=== PATIENT | male | born 1950 | race Caucasian/White ===

== ENCOUNTER 2017-11-19 10:18 | Inpatient (IN) | payer BC, OTHER ==
[~2017-11-19] VITALS: Ht 182.9 cm; Wt 101.2 kg
[2017-11-19] MEDS ORDERED: METOCLOPRAMIDE HCL INJ 5 MG/ML 2 ML VIAL IV. STA (10:45)
[2017-11-19] MEDS ORDERED: SODIUM CHLORIDE 0.9% 1000ML 1,000 ML IV STA (10:45)
--- NOTE | 2017-11-19 10:47 | EMERGENCY ROOM VISIT NOTE ---
History Report prepared by [place]: Xavier Spence Under the Supervision of: Dr. Maxime Purcell M.D. First contact with patient: 10:25 Chief Complaint: RECTAL BLEEDING Stated Complaint: VERY LIGHT HEADED, BLOOD IN STOOL History of Present Illness The patient is a 67 year old white male with a past medical history of DM, HTN, and asthma who presents to the ED with a cc of intermittent rectal bleeding beginning this morning. Positive light headedness worsened with walking. Negative LOC, rectal pain, hematemesis, abdominal pain, abdominal surgery, cough , fever, chills, recent camping or hiking, recent trauma. He notes that the blood seems like a dark blood, and he has had 5-6 bowel movements today. He denies any alcohol or tobacco use, history of ulcers, and history of inflammatory bowel disease. He takes 81mg aspiring BID, and takes 2 ibuprofen most nights. He denies any allergies Source of History: patient Onset: this morning Position: other (rectum) Quality: other Timing: intermittent Associated Symptoms: No LOC, No fevers, No chills, No cough, No abdominal pain Note: Associated symptoms Review of Systems See HPI for pertinent positives and negatives. A total of ten systems were reviewed and were otherwise negative. Past Medical & Surgical Medical Problems: (1) Asthma (2) Diabetes (3) HTN (hypertension) Family History Cancer Diabetes mellitus Heart disease Hypertension Kidney disease Kidney stones Social History Marital Status: Housing Status: lives with family Current/Historical Medications Scheduled Ascorbic Acid (Vitamin C), 1 TAB PO DAILY Aspirin (Aspirin Ec), 162 MG PO DAILY Biotin (Biotin 5000), 1 TAB PO DAILY Calcium (Calcium), 1 TAB PO DAILY Cholecalciferol (Vitamin D3), 1 CAP PO DAILY Coenzyme Q10 (Ubidecarenone) (Co Q-10), 1 CAP PO DAILY Cyanocobalamin (Vitamin B-12), 1,000 MCG PO DAILY Flaxseed (Linseed) (Flaxseed Oil), 1 CAP PO DAILY Glyburide (Micronase), 5 MG PO QID Insulin Glargine (Lantus), 20 UNITS SC QAM Krill Oil (Krill Oil 500 mg), 1 TAB PO DAILY Losartan Potassium (Cozaar), 50 MG PO DAILY Metformin Hcl (Glucophage), 1,000 MG PO BID Ocuvite Preservision (Ocuvite Preservision), 1 TAB PO DAILY Potassium (Potassium), 1 TAB PO QPM Simvastatin (Zocor), 1 TAB PO HS Tamsulosin Hcl (Flomax), 0.4 MG PO DAILY Scheduled PRN Ibuprofen (Advil), 400 MG PO PM PRN for Pain Allergies Coded Allergies: Lisinopril (Unverified Allergy, Unknown, unk, 11/19/17) Physical Exam Vital Signs Date Time Temp Pulse Resp B/P (MAP) Pulse Ox O2 Delivery O2 Flow Rate FiO2 11/19/17 13:14 124 20 104/76 96 11/19/17 11:55 115 20 113/77 96 Room Air 11/19/17 11:14 112 11/19/17 11:11 112 14 102/67 94 Room Air 11/19/17 11:10 96 Room Air 11/19/17 10:22 36.3 136 20 123/72 99 Room Air Physical Exam GENERAL: Awake, alert, pale-appearing, NAD HENT: Normocephalic, atraumatic. EYES: Normal conjunctiva. Sclera non-icteric. NECK: Supple. No nuchal rigidity. FROM. RESPIRATORY: CTAB, no rhonchi, wheezing, crackles CARDIAC: RRR, no MRG ABDOMEN: Soft, NTND, BS+ RECTAL: No bleeding hemorrhoids noted. Dark blood. No melenic stool. Gross blood on exam. MSK: No chest wall TTP, no LE edema NEURO: GCS 15, CN 2-12 intact, moves all 4s on command SKIN: No rash or jaundice noted. Medical Decision & Procedures Laboratory Results 11/19/17 11:00 Red Blood Count 3.75, Mean Corpuscular Volume 89.9, Mean Corpuscular Hemoglobin 30.1, Mean Corpuscular Hemoglobin Concent 33.5, Mean Platelet Volume 10.3, Neutrophils (%) (Auto) 86.8, Lymphocytes (%) (Auto) 8.7, Monocytes (%) (Auto) 3.7, Eosinophils (%) (Auto) 0.2, Basophils (%) (Auto) 0.2, Neutrophils # (Auto) 8.17, Lymphocytes # (Auto) 0.82, Monocytes # (Auto) 0.35, Eosinophils # (Auto) 0.02, Basophils # (Auto) 0.02 11/19/17 11:00 Test 11/19/17 11:00 11/19/17 12:10 White Blood Count 9.42 K/uL (4.8-10.8) Red Blood Count 3.75 M/uL (4.7-6.1) Hemoglobin 11.3 g/dL (14.0-18.0) Hematocrit 33.7 % (42-52) Mean Corpuscular Volume 89.9 fL (80-100) Mean Corpuscular Hemoglobin 30.1 pg (25-34) Mean Corpuscular Hemoglobin Concent 33.5 g/dl (32-36) Platelet Count 248 K/uL (130-400) Mean Platelet Volume 10.3 fL (7.4-10.4) Neutrophils (%) (Auto) 86.8 % Lymphocytes (%) (Auto) 8.7 % Monocytes (%) (Auto) 3.7 % Eosinophils (%) (Auto) 0.2 % Basophils (%) (Auto) 0.2 % Neutrophils # (Auto) 8.17 K/uL (1.4-6.5) Lymphocytes # (Auto) 0.82 K/uL (1.2-3.4) Monocytes # (Auto) 0.35 K/uL (0.11-0.59) Eosinophils # (Auto) 0.02 K/uL (0-0.5) Basophils # (Auto) 0.02 K/uL (0-0.2) RDW Standard Deviation 41.9 fL (36.4-46.3) RDW Coefficient of Variation 12.8 % (11.5-14.5) Immature Granulocyte % (Auto) 0.4 % Immature Granulocyte # (Auto) 0.04 K/uL (0.00-0.02) Prothrombin Time 10.3 SECONDS (9.0-12.0) Prothromb Time International Ratio 1.0 (0.9-1.1) Activated Partial Thromboplast Time 20.5 SECONDS (21.0-31.0) Partial Thromboplastin Ratio 0.8 Anion Gap 10.0 mmol/L (3-11) Est Creatinine Clear Calc Drug Dose 68.8 ml/min Estimated GFR () 67.3 Estimated GFR (Non- 58.1 BUN/Creatinine Ratio 19.9 (10-20) Calcium Level 8.6 mg/dl (8.5-10.1) Total Bilirubin 0.4 mg/dl (0.2-1) Direct Bilirubin < 0.1 mg/dl (0-0.2) Aspartate Amino Transf (AST/SGOT) 13 U/L (15-37) Alanine Aminotransferase (ALT/SGPT) 23 U/L (12-78) Alkaline Phosphatase 52 U/L (45-117) Troponin I < 0.015 ng/ml (0-0.045) Total Protein 6.6 gm/dl (6.4-8.2) Albumin 3.3 gm/dl (3.4-5.0) Lipase 224 U/L (73-393) Beta-Hydroxybutyric Acid 5.93 mg/dL (0.2-2.81) Urine Color YELLOW Urine Appearance CLEAR (CLEAR) Urine pH 5.0 (4.5-7.5) Urine Specific [place] 1.029 (1.000-1.030) Urine Protein NEG (NEG) Urine Glucose (UA) 3+ (NEG) Urine Ketones 1+ (NEG) Urine Occult Blood NEG (NEG) Urine Nitrite NEG (NEG) Urine Bilirubin NEG (NEG) Urine Urobilinogen NEG (NEG) Urine Leukocyte Esterase NEG (NEG) Laboratory results reviewed by me. Medications Administered Medications (Trade) Dose Ordered Sig/Fracisco Route Start Time Stop Time Status Last Admin Dose Admin Sodium Chloride 1,000 ml @ 999 mls/hr Q1H1M STAT IV 11/19/17 10:45 11/19/17 11:45 DC 11/19/17 11:07 999 MLS/HR Metoclopramide HCl (Reglan Inj) 10 mg NOW STAT IV. 11/19/17 10:45 11/19/17 10:46 DC 11/19/17 11:07 10 MG Pantoprazole Sodium 80 mg/ Dextrose 120 ml @ 480 mls/hr TODAY@1215 ONCE IV 11/19/17 12:15 11/19/17 12:29 DC 11/19/17 12:42 480 MLS/HR Pantoprazole Sodium 40 mg/ Dextrose 100 ml @ 20 mls/hr Q5H IV 11/19/17 12:30 11/19/17 17:29 11/19/17 13:08 20 MLS/HR ECG Indication: other (light headed) Rate (beats per minute): 116 Rhythm: sinus tachycardia Findings: T-wave inversion (lead 3), other (Normal aixs, normal intervals, no other STS changes or TWI) Change: Patient's electrocardiogram interpreted by me. ED Course 1025: The patient was evaluated in room C3. A complete history and physical exam was performed. 1110: The patient was refusing a chest x-ray. 1153: I reevaluated the patient, and he wanted to leave. I discussed the risks, and I told him if he were to leave it would be AMA. 1244: I reassessed the patient, and he was not willing to be admitted even though he meets medical criteria, and I would like him to be admitted. 1303: I reevaluated the patient again, and he is willing to be evaluated by a hospitalist. 1314: Discussed the patient's case with Dr. Demar Agarwal Hospitalist. The patient will be evaluated for further treatment and disposition. Medical Decision The patient is a 67 year old white male with a past medical history of DM, HTN, and asthma who presents to the ED with a cc of intermittent rectal bleeding beginning this morning. Differential diagnosis: Etiologies such as diverticulosis, AVM, coagulopathy, colitis, inflammatory bowel disease, malignancy, Mable-Isaac tear, esophagitis, peptic ulcer disease , variceal bleed, gastritis, epistaxis, fissure, hemorrhoids, as well as others were entertained. Patient was seen and evaluated the bedside. Patient noted that he had 5-6 bowel movements today believe are dark in nature. Patient denies any prior history of cirrhosis, liver dysfunction, or alcohol use. Patient of note is take 2 baby aspirin daily along with 400 Motrin in the evening for some chronic shoulder pain. Patient doesn't appear pale in appearance and is tachycardic. Patient's blood work completed that showed a hemoglobin of 11. I did discuss with the patient that I believe that he would benefit from admission for further evaluation and treatment. Patient's other blood work is fairly unremarkable. No prior blood work to compare to. Regulation studies normal. Platelet count normal. I did have discussion stated the patient would benefit from further treatment. Patient was ordered a PPI bolus and drip. The patient was still debating whether not he should stay. We had multiple conversations and stated that he should stay in the hospital. 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 [facility] did speak with the patient's primary care physician. She also agreed that the patient's stay in the hospital further workup. Patient was deemed agreeable to stay in the hospital. Patient was admitted to the medicine service. Medication Reconcilliation Current Medication List: was personally reviewed by me Blood Pressure Screening Patient's blood pressure: Normal blood pressure Consults Time Called: 1306 Consulting Physician: Dr. Demar Agarwal Hospitalist Returned Call: 1314 Discussed the patient's case with Dr. Demar Agarwal Hospitalist. The patient will be evaluated for further treatment and disposition. Impression Primary Impression: GI bleed Additional Impression: Anemia Scribe Attestation The scribe's documentation has been prepared under my direction and personally reviewed by me in its entirety. I confirm that the note above accurately reflects all work, treatment, procedures, and medical decision making performed by me. Departure Information Dispostion Being Evaluated By Hospitalist Referrals No Doctor, Assigned (PCP) Patient Instructions My [facility] Problem Qualifiers Primary Impression: GI bleed GI bleed type/associated pathology: unspecified gastrointestinal hemorrhage type Qualified Codes: K92.2 - Gastrointestinal hemorrhage, unspecified Additional Impression: Anemia Anemia type: unspecified type Qualified Codes: D64.9 - Anemia, unspecified
[2017-11-19 11:12] LABS: BASO % 0.2 %; BASO ABS # 0.02 K/uL (0-0.2); EOS % 0.2 %; EOS ABS # 0.02 K/uL (0-0.5); HEMATOCRIT 33.7 % (42-52); HEMOGLOBIN 11.3 g/dL (14.0-18.0); IG# 0.04 K/uL (0.00-0.02); LYMPH % 8.7 %; LYMPH ABS # 0.82 K/uL (1.2-3.4); MEAN CELL VOLUME 89.9 fL (80-100); MEAN CORPUSCULAR HEMOGLOBIN 30.1 pg (25-34); MEAN CORPUSCULAR HGB CONC 33.5 g/dl (32-36); MEAN PLATELET VOLUME 10.3 fL (7.4-10.4); MONO % 3.7 %; MONO ABS # 0.35 K/uL (0.11-0.59); NEUT % 86.8 %; NEUT ABS # 8.17 K/uL (1.4-6.5); PLATELET COUNT 248 K/uL (130-400); RED CELL DISTRIBUTION WIDTH CV 12.8 % (11.5-14.5); RED CELL DISTRIBUTION WIDTH SD 41.9 fL (36.4-46.3); WHITE BLOOD COUNT 9.42 K/uL (4.8-10.8)
[2017-11-19 11:19] LABS: PTT PATIENT 20.5 SECONDS (21.0-31.0)
[2017-11-19] MEDS ORDERED: SIMV20TA5 PO ×2 (11:23→14:54)
[2017-11-19] MEDS ORDERED: INSDGI SC (11:23)
[2017-11-19] MEDS ORDERED: ASPI81TA28 PO (11:23)
[2017-11-19] MEDS ORDERED: BIOT10TA2 PO (11:23)
[2017-11-19] MEDS ORDERED: POTA99TA PO ×2 (11:23→14:54)
[2017-11-19] MEDS ORDERED: CALC500T25 PO (11:23)
[2017-11-19] MEDS ORDERED: IBUP-1050 PO (11:23)
[2017-11-19] MEDS ORDERED: CHOL2000 PO (11:23)
[2017-11-19] MEDS ORDERED: KRIL1CAP7 PO (11:23)
[2017-11-19] MEDS ORDERED: GLC/500 PO (11:23)
[2017-11-19] MEDS ORDERED: TAMS0.4C38 PO (11:23)
[2017-11-19] MEDS ORDERED: GLYB5TAB8 PO ×2 (11:23→14:54)
[2017-11-19] MEDS ORDERED: MULT-190 PO (11:23)
[2017-11-19] MEDS ORDERED: CYAN10005 PO (11:23)
[2017-11-19 11:28] LABS: ALBUMIN 3.3 gm/dl (3.4-5.0); ALT/SGPT 23 U/L (12-78); AST/SGOT 13 U/L (15-37); BLOOD UREA NITROGEN 25 mg/dl (7-18); CALCIUM 8.6 mg/dl (8.5-10.1); CARBON DIOXIDE 25 mmol/L (21-32); CREATININE 1.27 mg/dl (0.60-1.40); GLUCOSE 308 mg/dl (70-99); LIPASE 224 U/L (73-393); SODIUM 137 mmol/L (136-145)
[2017-11-19 11:31] LABS: TOTAL PROTEIN 6.6 gm/dl (6.4-8.2)
[2017-11-19 11:38] LABS: ALKALINE PHOSPHATASE 52 U/L (45-117)
[2017-11-19] MEDS ORDERED: PANTOprazole INJ 80 MG in DEXTROSE 5% 100ML IV ONE (12:15)
[2017-11-19] MEDS: PANTOprazole INJ 40 MG in DEXTROSE 5% 100ML IV SCH ×3 (13:08→20:45)
[2017-11-19] MEDS ORDERED: GLUCOSE 40% GEL 15 GM TUBE PO PRN (14:30)
[2017-11-19] MEDS ORDERED: GLUCAGON FOR INJ 1 MG VIAL SQ PRN (14:30)
[2017-11-19] MEDS ORDERED: GLUCOSE 10 TABS/TUBE PO PRN (14:30)
[2017-11-19] MEDS ORDERED: DEXTROSE 50% 50 ML SYR IV PRN (14:30)
[2017-11-19] MEDS ORDERED: ONDANSETRON INJ 2 MG/ML 2 ML VIAL IV PRN (14:30)
[2017-11-19] MEDS ORDERED: PHARMACY GLYCEMIC MGMT CONSULT PRN (14:44)
[2017-11-19] MEDS ORDERED: METF1000 PO (14:54)
[2017-11-19] MEDS ORDERED: LOSA50TA6 PO (14:54)
[2017-11-19] MEDS ORDERED: BIOTCAP2 PO (14:54)
[2017-11-19] MEDS ORDERED: KRIL1CAP24 PO (14:54)
[2017-11-19] MEDS ORDERED: COEN300C PO (14:54)
[2017-11-19] MEDS ORDERED: ASCO10003 PO (14:54)
[2017-11-19] MEDS ORDERED: CALC600T37 PO (14:54)
[2017-11-19] MEDS ORDERED: FLAX PO (14:54)
--- NOTE | 2017-11-19 15:18 | Gastrointestinal Consultation ---
Gastrointestinal Consultation Date of Consultation: Nov 19, 2017 Attending Physician: Dr. Benz Consulting Physician: Dr. Van Reason for Consultation: Rectal bleeding History of Present Illness Patient is a 67 year old male patient who lives in the [place] area and is here for work. He presented to the ED today for rectal bleeding, present for "a few days," occurred about 8 times today, loose, consisting of a small amt of fecal material and mostly dark red blood. Today he became lightheaded, precipitating his presentation to the ED. On arrival, Hb is 11.3, but his baseline is unknown. Platelets = 248, INR is 1.0. BUN = 25, INR 1.27. BP is 104/76. He is tachycardic at 125/min. He denies any abdominal pain, nausea or vomiting. 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 He reports taking 2 baby aspirins/day and 400mg of ibuprofen every night. He tells me that his lightheadedness has resolved and that he wants to quickly "do what needs to be done," so he can, "get back to work." Past Medical/Surgical History Medical Problems: (1) Anemia Status: Acute (2) GI bleed Status: Acute Past Medical History: 1. DM-2 Past Surgical History: 1. Childhood tonsillectomy 2. Cataract surgery Family History Cancer Diabetes mellitus Heart disease Hypertension Kidney disease Kidney stones Social History Marital Status: Housing Status: lives with family Allergies Coded Allergies: Lisinopril (Unverified Allergy, Unknown, unk, 11/19/17) Current Medications Home Meds and Scripts Medications Dose Route/Sig Max Daily Dose Days Date Category Zocor (Simvastatin) Unknown Strength Tab Unknown Dose PO QPM 11/19/17 Reported Micronase (Glyburide) Unknown Strength Tab Unknown Dose PO DAILY 11/19/17 Reported Glucophage (Metformin Hcl) Unknown Strength Tab Unknown Dose PO BID 11/19/17 Reported Flomax (Tamsulosin Hcl) 0.4 Mg Cap 0.4 Mg PO DAILY 11/19/17 Reported Vitamin D3 (Cholecalciferol) 2,000 Unit Cap 1 Cap PO DAILY 90 11/19/17 Reported Krill Oil [place]-3 (Krill Oil) 1 Cap Cap 1 Cap PO BID 11/19/17 Reported Ocuvite Preservision (Multivitamins/Minerals) 1 Tab Tab 1 Tab PO DAILY 11/19/17 Reported Potassium 99 Mg Tab 99 Mg PO DAILY 11/19/17 Reported Calcium (Calcium Carbonate) 1,250 Mg Tab 1,250 Mg PO DAILY 11/19/17 Reported Biotin 10 Mg Tab 10 Mg PO DAILY 11/19/17 Reported Vitamin B-12 (Cyanocobalamin) 1,000 Mcg Tab 1,000 Mcg PO DAILY 11/19/17 Reported Advil (Ibuprofen) 200 Mg Tab 400-600 Mg PO PM 11/19/17 Reported Aspirin Ec (Aspirin) 81 Mg Tab 162 Mg PO DAILY 11/19/17 Reported Lantus (Insulin Glargine) 100 Unit/Ml Inj 20 Units SC QAM 11/19/17 Reported Review of Systems Constitutional: No fever, No chills, No sweats, No weight loss, No weakness Eyes: No eye pain, No redness ENT: No sore throat, No trouble swallowing, No pain on swallowing Respiratory: No cough, No wheezing, No shortness of breath, No dyspnea on exertion Cardiac: No chest pain, No edema, No palpitations Abdomen: + see HPI, No pain, No nausea, No vomiting Neuro: No memory loss, No weakness, No numbness/tingling, No vertigo, No balance problems Psych: No depression symptoms, No anxiety, No insomnia Heme: No abnormal bleeding/bruising, No night sweats Endo: No excessive thirst, No excessive urination Skin: No rash, No itch, No new/changing skin lesions, No jaundice Physical Exam Date Time Temp Pulse Resp B/P (MAP) Pulse Ox O2 Delivery O2 Flow Rate FiO2 11/19/17 13:14 124 20 104/76 96 11/19/17 11:55 115 20 113/77 96 Room Air 11/19/17 11:14 112 11/19/17 11:11 112 14 102/67 94 Room Air 11/19/17 11:10 96 Room Air 11/19/17 10:22 36.3 136 20 123/72 99 Room Air General Appearance: no apparent distress Eyes: normal inspection, EOMI Neck: supple, no adenopathy, thyroid normal Respiratory/Chest: chest non-tender, lungs clear, normal breath sounds, no accessory muscle use Cardiovascular: regular rate, rhythm, no JVD, no murmur Abdomen: normal bowel sounds, non tender, soft, no organomegaly Extremities: normal inspection, no pedal edema, normal capillary refill Neurologic/Psych: alert, normal mood/affect, oriented x 3 Skin: normal color, no jaundice, warm/dry, no rash Laboratory Results Last 24 Hours Test 11/19/17 11:00 11/19/17 12:10 11/19/17 14:28 White Blood Count 9.42 K/uL Red Blood Count 3.75 M/uL Hemoglobin 11.3 g/dL Hematocrit 33.7 % Mean Corpuscular Volume 89.9 fL Mean Corpuscular Hemoglobin 30.1 pg Mean Corpuscular Hemoglobin Concent 33.5 g/dl Platelet Count 248 K/uL Mean Platelet Volume 10.3 fL Neutrophils (%) (Auto) 86.8 % Lymphocytes (%) (Auto) 8.7 % Monocytes (%) (Auto) 3.7 % Eosinophils (%) (Auto) 0.2 % Basophils (%) (Auto) 0.2 % Neutrophils # (Auto) 8.17 K/uL Lymphocytes # (Auto) 0.82 K/uL Monocytes # (Auto) 0.35 K/uL Eosinophils # (Auto) 0.02 K/uL Basophils # (Auto) 0.02 K/uL RDW Standard Deviation 41.9 fL RDW Coefficient of Variation 12.8 % Immature Granulocyte % (Auto) 0.4 % Immature Granulocyte # (Auto) 0.04 K/uL Prothrombin Time 10.3 SECONDS Prothromb Time International Ratio 1.0 Activated Partial Thromboplast Time 20.5 SECONDS Partial Thromboplastin Ratio 0.8 Sodium Level 137 mmol/L Potassium Level 5.0 mmol/L Chloride Level 102 mmol/L Carbon Dioxide Level 25 mmol/L Anion Gap 10.0 mmol/L Blood Urea Nitrogen 25 mg/dl Creatinine 1.27 mg/dl Est Creatinine Clear Calc Drug Dose 68.8 ml/min Estimated GFR () 67.3 Estimated GFR (Non- 58.1 BUN/Creatinine Ratio 19.9 Random Glucose 308 mg/dl Calcium Level 8.6 mg/dl Total Bilirubin 0.4 mg/dl Direct Bilirubin < 0.1 mg/dl Aspartate Amino Transf (AST/SGOT) 13 U/L Alanine Aminotransferase (ALT/SGPT) 23 U/L Alkaline Phosphatase 52 U/L Troponin I < 0.015 ng/ml Total Protein 6.6 gm/dl Albumin 3.3 gm/dl Lipase 224 U/L Beta-Hydroxybutyric Acid 5.93 mg/dL Urine Color YELLOW Urine Appearance CLEAR Urine pH 5.0 Urine Specific [place] 1.029 Urine Protein NEG Urine Glucose (UA) 3+ Urine Ketones 1+ Urine Occult Blood NEG Urine Nitrite NEG Urine Bilirubin NEG Urine Urobilinogen NEG Urine Leukocyte Esterase NEG Impression Patient is a 67 year old male with painless rectal bleeding, likely diverticular , however, ischemic colitis, hemorrhoidal bleeding are also considered. In light of his NSAID use, he is at risk for an UGI bleed and mildly elevated BUN at 25 is also suggestive of that but his lack of heartburn/epigastric argues against that. Plan 1. IV fluids. 2. Agree with Protonix drip until UGI bleed is ruled out. 3. Hold NSAIDs. 4. Clear liquids tonight. 5. Plan for EGD/colonoscopy tomorrow. I have seen , examined and agree with the plan as outlined by MARGIE Soria as above. -exam reveals soft abd -No pain -No melena noted, appears well -Not NPO today -Prep tonight, plan for EGD/Colon in the am
--- NOTE | 2017-11-19 15:25 | History and Physical ---
History & Physical Date & Time of Service: Nov 19, 2017 at 15:15 Chief Complaint: Very Light Headed, Blood In Stool Primary Care Physician: No Doctor, Assigned History of Present Illness Source: patient, hospital records This is a 67yo M with a PMH of DM II, HTN, BPH and asthma who presents with rectal bleeding for the past few days. He lives in [place] but is traveling in the area for work. Noticed that his stool was darker than normal the past few days but only this morning did he notice blood in the toilet after a bowel movement. Endorses 7 episodes of dark brown stool with dark red blood today. Started to feel lightheaded with exertion so came to ED for further evaluation. Denies abdominal pain, nausea or vomiting. Denies any history of peptic ulcers, diverticular bleeds. Does not smoke. Takes 2 baby aspirin every morning and 400mg of ibuprofen most nights for shoulder pain. Patient took his AM meds, including 20u of Lantus. Endorses infrequent "twinges" of pain on his left chest. Denies any chest pressure, radiation of pain, diaphoresis. No fever, chills, headache, pre- syncope, visual changes, sore throat, palpitations, SOB, dysuria, weakness of extremities or LE swelling. Past Medical/Surgical History Medical Problems: (1) Asthma Status: Chronic (2) BPH (benign prostatic hyperplasia) Status: Chronic (3) Diabetes mellitus, type II Status: Chronic (4) HTN (hypertension) Status: Chronic Family History Cancer Diabetes mellitus Heart disease Hypertension Kidney disease Kidney stones Social History Smoking Status: Unknown if Ever Smoked Alcohol Use: none Marital Status: Housing status: lives with family Occupational Status: employed Allergies Coded Allergies: Lisinopril (Unverified Allergy, Unknown, unk, 11/19/17) Home Medications Scheduled Ascorbic Acid (Vitamin C), 1 TAB PO DAILY Aspirin (Aspirin Ec), 162 MG PO DAILY Biotin (Biotin 5000), 1 TAB PO DAILY Calcium (Calcium), 1 TAB PO DAILY Cholecalciferol (Vitamin D3), 1 CAP PO DAILY Coenzyme Q10 (Ubidecarenone) (Co Q-10), 1 CAP PO DAILY Cyanocobalamin (Vitamin B-12), 1,000 MCG PO DAILY Flaxseed (Linseed) (Flaxseed Oil), 1 CAP PO DAILY Glyburide (Micronase), 5 MG PO QID Insulin Glargine (Lantus), 20 UNITS SC QAM Krill Oil (Krill Oil 500 mg), 1 TAB PO DAILY Losartan Potassium (Cozaar), 50 MG PO DAILY Metformin Hcl (Glucophage), 1,000 MG PO BID Ocuvite Preservision (Ocuvite Preservision), 1 TAB PO DAILY Potassium (Potassium), 1 TAB PO QPM Simvastatin (Zocor), 1 TAB PO HS Tamsulosin Hcl (Flomax), 0.4 MG PO DAILY Scheduled PRN Ibuprofen (Advil), 400 MG PO PM PRN for Pain Review of Systems Ten systems reviewed and negative except as noted in the HPI. Physical Exam Vital Signs Date Time Temp Pulse Resp B/P (MAP) Pulse Ox O2 Delivery O2 Flow Rate FiO2 11/19/17 13:14 124 20 104/76 96 11/19/17 11:55 115 20 113/77 96 Room Air 11/19/17 11:14 112 11/19/17 11:11 112 14 102/67 94 Room Air 11/19/17 11:10 96 Room Air 11/19/17 10:22 36.3 136 20 123/72 99 Room Air General Appearance: WD/WN, no apparent distress, + pertinent finding (pale ) Head: normocephalic, atraumatic Eyes: normal inspection, PERRL, sclerae normal ENT: normal ENT inspection, hearing grossly normal, pharynx normal Neck: supple, thyroid normal, trachea midline Respiratory/Chest: chest non-tender, lungs clear, normal breath sounds, no respiratory distress, no accessory muscle use Cardiovascular: no murmur, normal peripheral pulses, + tachycardia Abdomen/GI: normal bowel sounds, non tender, soft, no organomegaly Back: normal inspection Extremities/Musculoskelatal: normal inspection, no calf tenderness, no pedal edema Neurologic/Psych: no motor/sensory deficits, alert, normal mood/affect, oriented x 3 Skin: normal color, warm/dry, + pallor Diagnostics Laboratory Results Results Past 24 Hours Test 11/19/17 11:00 11/19/17 12:10 11/19/17 15:09 Range/Units White Blood Count 9.42 4.8-10.8 K/uL Red Blood Count 3.75 4.7-6.1 M/uL Hemoglobin 11.3 14.0-18.0 g/dL Hematocrit 33.7 42-52 % Mean Corpuscular Volume 89.9 80-100 fL Mean Corpuscular Hemoglobin 30.1 25-34 pg Mean Corpuscular Hemoglobin Concent 33.5 32-36 g/dl Platelet Count 248 130-400 K/uL Mean Platelet Volume 10.3 7.4-10.4 fL Neutrophils (%) (Auto) 86.8 % Lymphocytes (%) (Auto) 8.7 % Monocytes (%) (Auto) 3.7 % Eosinophils (%) (Auto) 0.2 % Basophils (%) (Auto) 0.2 % Neutrophils # (Auto) 8.17 1.4-6.5 K/uL Lymphocytes # (Auto) 0.82 1.2-3.4 K/uL Monocytes # (Auto) 0.35 0.11-0.59 K/uL Eosinophils # (Auto) 0.02 0-0.5 K/uL Basophils # (Auto) 0.02 0-0.2 K/uL RDW Standard Deviation 41.9 36.4-46.3 fL RDW Coefficient of Variation 12.8 11.5-14.5 % Immature Granulocyte % (Auto) 0.4 % Immature Granulocyte # (Auto) 0.04 0.00-0.02 K/uL Prothrombin Time 10.3 9.0-12.0 SECONDS Prothromb Time International Ratio 1.0 0.9-1.1 Activated Partial Thromboplast Time 20.5 21.0-31.0 SECONDS Partial Thromboplastin Ratio 0.8 Sodium Level 137 136-145 mmol/L Potassium Level 5.0 3.5-5.1 mmol/L Chloride Level 102 98-107 mmol/L Carbon Dioxide Level 25 21-32 mmol/L Anion Gap 10.0 3-11 mmol/L Blood Urea Nitrogen 25 7-18 mg/dl Creatinine 1.27 0.60-1.40 mg/dl Est Creatinine Clear Calc Drug Dose 68.8 ml/min Estimated GFR () 67.3 Estimated GFR (Non- 58.1 BUN/Creatinine Ratio 19.9 10-20 Random Glucose 308 70-99 mg/dl Calcium Level 8.6 8.5-10.1 mg/dl Total Bilirubin 0.4 0.2-1 mg/dl Direct Bilirubin < 0.1 0-0.2 mg/dl Aspartate Amino Transf (AST/SGOT) 13 15-37 U/L Alanine Aminotransferase (ALT/SGPT) 23 12-78 U/L Alkaline Phosphatase 52 45-117 U/L Troponin I < 0.015 0-0.045 ng/ml Total Protein 6.6 6.4-8.2 gm/dl Albumin 3.3 3.4-5.0 gm/dl Lipase 224 73-393 U/L Beta-Hydroxybutyric Acid 5.93 0.2-2.81 mg/dL Urine Color YELLOW Urine Appearance CLEAR CLEAR Urine pH 5.0 4.5-7.5 Urine Specific [place] 1.029 1.000-1.030 Urine Protein NEG NEG Urine Glucose (UA) 3+ NEG Urine Ketones 1+ NEG Urine Occult Blood NEG NEG Urine Nitrite NEG NEG Urine Bilirubin NEG NEG Urine Urobilinogen NEG NEG Urine Leukocyte Esterase NEG NEG EKG Sinus tachycardia at 116 bpm. Impression Assessment and Plan This is a 67yo M with a PMH of DM II, HTN, BPH and asthma who presents with rectal bleeding for the past few days. He lives in [place] but is traveling in the area for work. Anemia 2/2 GI bleed: -Lightheaded, tachycardic -Hgb of 11.3. Unknown baseline -H&H Q6 -Type & screened -Transfuse if hgb <8 -IV fluids GI bleed: -Dark stool with presence of dark blood -Mildly elevated BUN of 25 -At risk for upper GI bleed with NSAID use, but no abd pain -Also considering diverticular bleed, hemorrhoids -IV fluids -Protonix bolus and drip -Hold NSAIDs -GI consulted -Clear liquids, NPO after midnight -Plan for EGD/colonoscopy tomorrow DM II: -BG of 308 on arrival -Beta hydroxybutyric acid elevated to 5.9. No anion gap -Takes 20u Lantus qAM, metformin, glyburide -Hold home meds -Basal bolus insulin per protocol -Repeat Beta hydroxybutyric acid in AM -Pharm consult -A1c pending Atypical chest pain: -Intermittent "twinges" on left chest wall -Likely musculoskeletal in origin -EKG without ischemic changes, initial troponin negative -Trend troponins for completeness HTN: -Normotensive -Hold losartan for now -Monitor BPH: -Hold tamsulosin for now Asthma: -Stable DVT Ppx: SCDs Code status: FULL PCP: Dr. Suarez ([place]) Dispo: Admitted to telemetry. Plan to return home once medically stable. Patient seen in collaboration with Dr. Benz. Please see addendum. ATTENDING ADDENDUM ; pt seen and examined , care co ordinated with Yesenia Valentino PA-C 67 yo M presented with 2 days hx of bright red blood per rectum , multiple episodes yesterday and this AM associated with WHITE , fatigue , dizzy and lightheadedness HB 11 reports to taking Aspirin 162 mg daily and PRN ibuprofen hemodynamically stable ordered for NPO , IV Protonix gtt GI eval requested 2 units of PRBC typed and crossed follow H&H q 6hrs , PRBC tx if Hb < 8 or active bleeding noted Full code please refer to documentation of Yesenia Valentino PA-C for further discussion of other issues Rosalia Benz MD Level of Care Telemetry Resuscitation Status FULL RESUSCITATION VTE Prophylaxis VTE Risk Assessment Done? Y/N: Yes Risk Level: Moderate Given or contraindicated: SCD's
[2017-11-19 15:27] LABS: HEMATOCRIT 30.7 % (42-52); HEMOGLOBIN 10.4 g/dL (14.0-18.0)
[2017-11-19] MEDS ORDERED: INSULIN ASPART 100 UNITS/ML 3 ML PEN SC SCH ×2 (16:00→18:00)
[2017-11-19] MEDS ORDERED: BISACODYL 5 MG TABEC PO ONE (16:16)
[2017-11-19] MEDS ORDERED: LAVAGE SOLUTION 4000ML PO SCH (16:30)
[2017-11-19] MEDS: SODIUM CHLORIDE 0.9% 1000ML 1,000 ML IV SCH ×2 (16:33→23:15)
[2017-11-19 16:36] VITALS: BP 114/82; PULSE 98; TEMP 36.5; O2SAT 99; Ht 182.9 cm; Wt 101.2 kg
[2017-11-19] MEDS ORDERED: NURSING VERBAL MED ORDER ONE (18:30)
[2017-11-19] MEDS: INSULIN ASPART 100 UNITS/ML 3 ML PEN SC SCH (19:59)
[2017-11-19 20:16] VITALS: BP 128/84; PULSE 98; TEMP 36.9; O2SAT 95
[2017-11-19 20:31] LABS: HEMOGLOBIN 9.9 g/dL (14.0-18.0)
[2017-11-19] MEDS ORDERED: INSULIN GLARGINE SOLOSTAR 100 UNITS/ML 3 ML PEN SC SCH (21:00)
[2017-11-19] MEDS ORDERED: PHARMACY GLYCEMIC MGMT CONSULT STA (21:39)
[2017-11-19 23:33] VITALS: BP 120/69; PULSE 89; TEMP 36.5; O2SAT 99
[2017-11-20] VITALS (14 sets, daily range): BP systolic 97–139; BP diastolic 3–86; PULSE 86–142; TEMP 36.4–37.2; O2SAT 94–100
[2017-11-20] MEDS: PANTOprazole INJ 40 MG in DEXTROSE 5% 100ML IV SCH ×4 (01:21→22:29)
[2017-11-20] MEDS: SODIUM CHLORIDE 0.9% 1000ML 1,000 ML IV SCH ×3 (01:49→23:32)
[2017-11-20 02:25] LABS: HEMATOCRIT 25.5 % (42-52); HEMOGLOBIN 8.4 g/dL (14.0-18.0)
[2017-11-20] MEDS: INSULIN ASPART 100 UNITS/ML 3 ML PEN SC SCH ×4 (07:48→21:00)
[2017-11-20] MEDS: INSULIN GLARGINE SOLOSTAR 100 UNITS/ML 3 ML PEN SC SCH (07:49)
[2017-11-20 08:27] LABS: HEMATOCRIT 21.2 % (42-52); HEMOGLOBIN 7.4 g/dL (14.0-18.0); MEAN CELL VOLUME 89.5 fL (80-100); MEAN CORPUSCULAR HEMOGLOBIN 31.2 pg (25-34); MEAN CORPUSCULAR HGB CONC 34.9 g/dl (32-36); MEAN PLATELET VOLUME 9.5 fL (7.4-10.4); PLATELET COUNT 168 K/uL (130-400); RED CELL DISTRIBUTION WIDTH CV 13.1 % (11.5-14.5); WHITE BLOOD COUNT 5.94 K/uL (4.8-10.8)
[2017-11-20 09:01] LABS: CALCIUM 7.3 mg/dl (8.5-10.1); CREATININE 0.83 mg/dl (0.60-1.40); POTASSIUM 4.1 mmol/L (3.5-5.1)
[2017-11-20 09:39] LABS: HEMOGLOBIN A1C 7.8 % (4.5-5.6)
--- NOTE | 2017-11-20 09:55 | Clinical Documentation Query ---
CLAY Quintero : CLINICAL DOCUMENTATION QUERY Patient is a 67 year old male admitted for evaluation of "anemia 2/2 GI bleed". Admission H&H was 11.3 g/dl and 33.7%. This a.m. (11/20), repeat values were 7.4 g/dl and 21.2%. In order to capture the acuity and appropriate severity of illness and risk of mortality, consider explicit documentation as suggested below. She has been seen in consultation by GI, is being monitored with serial hematology, placed on a PPI infusion, plan for colonoscopy/EGD, and has been transfused 2 units of PRBC's. In your clinical opinion is this patient being managed for: ( ) Acute blood loss anemia secondary to GI bleed ( ) Not Agree ( ) Other explanation of clinical findings (Please Explain) ( ) Unable to determine (Please Define) ( ) Need to Discuss The medical record reflects the following clinical findings, treatment, and risk factors. Clinical Indicators: As above Treatment:She has been seen in consultation by GI, is being monitored with serial hematology, placed on a PPI infusion, plan for colonoscopy/EGD, and has been transfused 2 units of PRBC's Risk Factors: ASA, NSAID use Please clarify and document your clinical opinion in the progress notes and discharge summary. Terms such as "probable", "suspected", "likely", "questionable", "possible", or "still to be ruled out" are acceptable. IF IN AGREEMENT, YOU MUST DOCUMENT ABOVE DIAGNOSTIC STATEMENT IN DAILY PROGRESS NOTES AND DISCHARGE SUMMARY. This document is not part of the patient's record. Thank You, David Cuellar RN [phone]
--- NOTE | 2017-11-20 10:05 | Progress Note ---
Medicine Progress Note Date & Time of Visit: Nov 20, 2017 at 09:40. Subjective Pt was seen and examined Sitting at the edge of the bed with no distress Pt said that he continues to have blood stool He denies any abdominal pain, nausea, vomiting and SOB Objective Last 8 Hrs Date Time Temp Pulse Resp B/P (MAP) Pulse Ox O2 Delivery O2 Flow Rate FiO2 11/20/17 09:34 37.2 103 18 97/71 96 11/20/17 09:22 36.4 142 20 101/63 95 11/20/17 09:10 36.6 132 20 98/86 94 11/20/17 08:13 36.8 97 17 110/69 (83) 96 11/20/17 04:00 Room Air 11/20/17 03:35 36.5 96 16 120/78 (92) 99 Room Air Physical Exam: General- No acute distress Head- atraumatic Eyes- PERRL, EOMI ENT- oropharynx clear Neck- supple, no JVD Lungs- clear to auscultation Heart- regular rhythm Abdomen- normal bowel sounds, soft Extremities- no calf tenderness Neuro- alert, oriented x 3; PERRL, EOMI; no facial palsy Skin- warm & dry Laboratory Results: Last 24 Hours Test 11/19/17 11:00 11/19/17 12:10 11/19/17 14:56 11/19/17 15:09 White Blood Count 9.42 K/uL Red Blood Count 3.75 M/uL Hemoglobin 11.3 g/dL 10.4 g/dL Hematocrit 33.7 % 30.7 % Mean Corpuscular Volume 89.9 fL Mean Corpuscular Hemoglobin 30.1 pg Mean Corpuscular Hemoglobin Concent 33.5 g/dl Platelet Count 248 K/uL Mean Platelet Volume 10.3 fL Neutrophils (%) (Auto) 86.8 % Lymphocytes (%) (Auto) 8.7 % Monocytes (%) (Auto) 3.7 % Eosinophils (%) (Auto) 0.2 % Basophils (%) (Auto) 0.2 % Neutrophils # (Auto) 8.17 K/uL Lymphocytes # (Auto) 0.82 K/uL Monocytes # (Auto) 0.35 K/uL Eosinophils # (Auto) 0.02 K/uL Basophils # (Auto) 0.02 K/uL RDW Standard Deviation 41.9 fL RDW Coefficient of Variation 12.8 % Immature Granulocyte % (Auto) 0.4 % Immature Granulocyte # (Auto) 0.04 K/uL Prothrombin Time 10.3 SECONDS Prothromb Time International Ratio 1.0 Activated Partial Thromboplast Time 20.5 SECONDS Partial Thromboplastin Ratio 0.8 Sodium Level 137 mmol/L Potassium Level 5.0 mmol/L Chloride Level 102 mmol/L Carbon Dioxide Level 25 mmol/L Anion Gap 10.0 mmol/L Blood Urea Nitrogen 25 mg/dl Creatinine 1.27 mg/dl Est Creatinine Clear Calc Drug Dose 68.8 ml/min Estimated GFR () 67.3 Estimated GFR (Non- 58.1 BUN/Creatinine Ratio 19.9 Random Glucose 308 mg/dl Calcium Level 8.6 mg/dl Total Bilirubin 0.4 mg/dl Direct Bilirubin < 0.1 mg/dl Aspartate Amino Transf (AST/SGOT) 13 U/L Alanine Aminotransferase (ALT/SGPT) 23 U/L Alkaline Phosphatase 52 U/L Troponin I < 0.015 ng/ml Total Protein 6.6 gm/dl Albumin 3.3 gm/dl Lipase 224 U/L Beta-Hydroxybutyric Acid 5.93 mg/dL Urine Color YELLOW Urine Appearance CLEAR Urine pH 5.0 Urine Specific [place] 1.029 Urine Protein NEG Urine Glucose (UA) 3+ Urine Ketones 1+ Urine Occult Blood NEG Urine Nitrite NEG Urine Bilirubin NEG Urine Urobilinogen NEG Urine Leukocyte Esterase NEG Bedside Glucose 189 mg/dl Test 11/19/17 16:45 11/19/17 17:05 11/19/17 19:58 11/19/17 20:22 Bedside Glucose 161 mg/dl 139 mg/dl Troponin I < 0.015 ng/ml Hemoglobin 9.9 g/dL Hematocrit 29.0 % Test 11/19/17 22:56 11/20/17 02:16 11/20/17 08:15 Troponin I < 0.015 ng/ml Hemoglobin 8.4 g/dL 7.4 g/dL Hematocrit 25.5 % 21.2 % White Blood Count 5.94 K/uL Red Blood Count 2.37 M/uL Mean Corpuscular Volume 89.5 fL Mean Corpuscular Hemoglobin 31.2 pg Mean Corpuscular Hemoglobin Concent 34.9 g/dl RDW Standard Deviation 42.0 fL RDW Coefficient of Variation 13.1 % Platelet Count 168 K/uL Mean Platelet Volume 9.5 fL Sodium Level 141 mmol/L Potassium Level 4.1 mmol/L Chloride Level 105 mmol/L Carbon Dioxide Level 28 mmol/L Anion Gap 8.0 mmol/L Blood Urea Nitrogen 14 mg/dl Creatinine 0.83 mg/dl Est Creatinine Clear Calc Drug Dose 105.5 ml/min Estimated GFR () 105.5 Estimated GFR (Non- 91.0 BUN/Creatinine Ratio 16.4 Random Glucose 170 mg/dl Estimated Average Glucose 177 mg/dl Hemoglobin A1c 7.8 % Calcium Level 7.3 mg/dl Beta-Hydroxybutyric Acid 7.67 mg/dL Assessment & Plan GI BLEED ANEMIA Hbg on admission 11.3 Hgb this morning 7.4 Will give 2 unit PRBC GI on board NPO now for EGD/Colonoscopy today Continue Protonix drip and IV fluid Hold ASA Continue monitor H/H DM II: Hba1c 7.8 Elevated Beta hydroxybutyric acid No anion gap Continue [employer] for glycemic management On insulin coverage Will check Beta Hydroxybutyric acid Atypical chest pain: Troponin negative EKG showed no ischemic changes ASA on hold due to GI bleed Stable Tachycardia Possible related to GI bleed/Anemia and in the setting of hospital stay EKG showed sinus tach Continue monitor in telemetry HTN: BP stable Continue holding losartan BPH: Stable Asthma: Stable DVT Ppx: SCDs due to GI bleed Code status: FULL PCP: Dr. Suarez ([place]) Current Inpatient Medications: Current Inpatient Medications Medications (Trade) Dose Ordered Sig/Fracisco Route Start Time Stop Time Status Last Admin Dose Admin Pantoprazole Sodium 40 mg/ Dextrose 100 ml @ 20 mls/hr Q5H IV 11/19/17 12:30 12/19/17 12:29 11/20/17 07:47 20 MLS/HR Ondansetron HCl (Zofran Inj) 4 mg Q6H PRN IV 11/19/17 14:30 12/19/17 14:29 Glucose (Glucose 40% Gel) 15-30 GRAMS 15 GRAMS... UD PRN PO 11/19/17 14:30 12/19/17 14:29 Glucose (Glucose Chew Tab) 4-8 Tablets 4 Tabl... UD PRN PO 11/19/17 14:30 12/19/17 14:29 Dextrose (Dextrose 50% 50ML Syringe) 25-50ML OF 50% DW IV FOR... UD PRN IV 11/19/17 14:30 12/19/17 14:29 Glucagon (Glucagon Inj) 1 mg UD PRN SQ 11/19/17 14:30 12/19/17 14:29 Miscellaneous Information (Consult Glycemic Management Pharmacy) 1 ea UD PRN N/A 11/19/17 14:44 12/19/17 14:43 Sodium Chloride 1,000 ml @ 125 mls/hr Q8H IV 11/19/17 14:30 12/19/17 14:29 11/20/17 01:49 125 MLS/HR Insulin Glargine (Lantus Solostar Pen) see protocol text DAILY SC 11/20/17 09:00 12/20/17 08:59 11/20/17 07:49 20 UNITS Insulin Aspart (novoLOG ASPART) SLIDING SCALE If C... ACHS SC 11/19/17 21:00 12/19/17 20:59 11/20/17 07:48 2 UNITS
--- NOTE | 2017-11-20 10:28 | Progress Note ---
Progress Note Date of Service Nov 20, 2017. (Alena ePralta ., MARIGE) Progress Note Pt seen, NPO for colon and EGD. Completed prep w/ continued painless BRBPR. Liquid stools per pt and nursing staff. No fever, chills, CP, SOB. Unit transfusing now. No acute distress. Lungs CTA. Heart RRR. Abd soft, non-distended. NPO for endoscopic evaluation. (Alena Peralta ., MARGIE) Patient with continued rectal bleeding overnight, Hb declined. Hemodynamics have remained stable Plan for EGD/Colonoscopy today (Salvador Van MD)
[2017-11-20] MEDS ORDERED: PROPOFOL IV EMULSION 10 MG/ML 20 ML VIAL IV ONE (13:03)
[2017-11-20] MEDS ORDERED: PHENYLEPHRINE 100MCG/ML 5ML SYR ONE (13:03)
[2017-11-20] MEDS ORDERED: LIDOCAINE HCL 2% 2 ML VIAL (20MG/ML) ONE (13:03)
--- NOTE | 2017-11-20 13:10 | GI REPORT ---
Procedure Date: 11/20/2017 12:14 PM Procedure: Upper GI endoscopy Indications: Dysphagia, Hematochezia, Melena Medicines: Monitored Anesthesia Care Complications: No immediate complications. Estimated blood loss: None. Estimated Blood Loss: Estimated blood loss: none. Procedure: Pre-Anesthesia Assessment: - Pre-Anesthesia Assessment: - Prior to the procedure, a History and Physical was performed, and patient medications, allergies and sensitivities were reviewed. The patient's tolerance of previous anesthesia was reviewed. Please see [facility] for complete details. - The risks and benefits of the procedure and the sedation options and risks were discussed with the patient. All questions were answered and informed consent was obtained. - Patient identification and proposed procedure were verified prior to the procedure by the physician and the nurse. The procedure was verified in the pre-procedure area in the procedure room. After obtaining informed consent, the endoscope was passed carefully and meticuously under direct vision and only advanced when the lumen was clearly identified, C02 insuflation was utilized throughout the entirity of the procedure. Throughout the procedure, the patient's blood pressure, pulse, and oxygen saturations were monitored continuously. - Pre-Anesthesia Assessment: - Prior to the procedure, a History and Physical was performed, and patient medications, allergies and sensitivities were reviewed. The patient's tolerance of previous anesthesia was reviewed. Please see [facility] for complete details. - The risks and benefits of the procedure and the sedation options and risks were discussed with the patient. All questions were answered and informed consent was obtained. - Patient identification and proposed procedure were verified prior to the procedure by the physician and the nurse. The procedure was verified in the pre-procedure area in the procedure room. After obtaining informed consent, the endoscope was passed carefully and meticuously under direct vision and only advanced when the lumen was clearly identified, C02 insuflation was utilized throughout the entirity of the procedure. Throughout the procedure, the patient's blood pressure, pulse, and oxygen saturations were monitored continuously. After obtaining informed consent, the endoscope was passed under direct vision. Throughout the procedure, the patient's blood pressure, pulse, and oxygen saturations were monitored continuously. The scope was introduced through the mouth, and advanced to the fourth part of duodenum. The upper GI endoscopy was accomplished without difficulty. The patient tolerated the procedure well. Findings: The examined esophagus was normal. The entire examined stomach was normal. The first portion of the duodenum, second portion of the duodenum, third portion of the duodenum and fourth portion of the duodenum were normal. No evidence of bleeding Impression: - Normal esophagus. - Normal stomach. - Normal first portion of the duodenum, second portion of the duodenum, third portion of the duodenum and fourth portion of the duodenum. - No specimens collected. Recommendation: - Discharge patient to home (with escort). - Perform a colonoscopy today. Salvador Van MD 11/20/2017 1:09:39 PM This report has been signed electronically. Note Initiated On: 11/20/2017 12:14 PM I attest to the content of the Intraoperative Record and orders documented therein, exceptions below
--- NOTE | 2017-11-20 13:12 | Anesthesiology Progress Note ---
Anesthesia Post Op Note Date & Time Nov 20, 2017 at 13:12 Vital Signs Pain Intensity: 0.0 Vital Signs Past 12 Hours Date Time Temp Pulse Resp B/P (MAP) Pulse Ox O2 Delivery O2 Flow Rate FiO2 11/20/17 11:40 36.9 95 20 114/80 100 11/20/17 11:35 36.9 100 20 114/80 (91) 95 Room Air 11/20/17 11:09 37.0 100 18 104/72 97 11/20/17 11:00 Room Air 11/20/17 10:57 36.6 93 18 116/68 95 11/20/17 10:45 36.6 96 16 127/63 95 11/20/17 10:11 37.0 97 16 126/65 95 11/20/17 09:34 37.2 103 18 97/71 96 11/20/17 09:22 36.4 142 20 101/63 95 11/20/17 09:10 36.6 132 20 98/86 94 11/20/17 08:13 36.8 97 17 110/69 (83) 96 11/20/17 08:00 Room Air 11/20/17 04:00 Room Air 11/20/17 03:35 36.5 96 16 120/78 (92) 99 Room Air Notes Mental Status: alert / awake / arousable, participated in evaluation Pt Amnestic to Procedure: Yes Nausea / Vomiting: adequately controlled Pain: adequately controlled Airway Patency, RR, SpO2: stable & adequate BP & HR: stable & adequate Hydration State: stable & adequate Anesthetic Complications: no major complications apparent
--- NOTE | 2017-11-20 13:14 | GI REPORT ---
Procedure Date: 11/20/2017 12:17 PM Procedure: Colonoscopy Indications: Rectal bleeding Medicines: Monitored Anesthesia Care Complications: No immediate complications. Estimated blood loss: None. Estimated Blood Loss: Estimated blood loss: none. Procedure: Pre-Anesthesia Assessment: - Pre-Anesthesia Assessment: - Prior to the procedure, a History and Physical was performed, and patient medications, allergies and sensitivities were reviewed. The patient's tolerance of previous anesthesia was reviewed. Please see [facility] for complete details. - The risks and benefits of the procedure and the sedation options and risks were discussed with the patient. All questions were answered and informed consent was obtained. - Patient identification and proposed procedure were verified prior to the procedure by the physician and the nurse. The procedure was verified in the pre-procedure area in the procedure room. After obtaining informed consent, the endoscope was passed carefully and meticuously under direct vision and only advanced when the lumen was clearly identified, C02 insuflation was utilized throughout the entirity of the procedure. Throughout the procedure, the patient's blood pressure, pulse, and oxygen saturations were monitored continuously. After I obtained informed consent, the scope was passed under direct vision. Throughout the procedure, the patient's blood pressure, pulse, and oxygen saturations were monitored continuously. The Scope was introduced through the anus and advanced to the terminal ileum, with identification of the appendiceal orifice and IC valve. The colonoscopy was performed without difficulty. The patient tolerated the procedure well. The quality of the bowel preparation was fair. Findings: Red blood was found in the entire colon. Only minimal amounts noted. A few small-mouthed diverticula were found in the sigmoid colon and ascending colon. The terminal ileum appeared normal. Internal hemorrhoids were found during retroflexion. No active bleeding identified. Impression: - Preparation of the colon was fair. - Blood in the entire examined colon. - Diverticulosis in the sigmoid colon and in the ascending colon. - The examined portion of the ileum was normal. - Internal hemorrhoids. - No specimens collected. Recommendation: - Return patient to [facility] care. - Clear liquid diet. - If has recurrent bleeding then order nuclear medicine bleeding scan. Continue supportive care and following hemodynamics. Salvador Van MD 11/20/2017 1:14:33 PM This report has been signed electronically. Note Initiated On: 11/20/2017 12:17 PM I attest to the content of the Intraoperative Record and orders documented therein, exceptions below
[2017-11-20 15:06] LABS: HEMATOCRIT 28.2 % (42-52); HEMOGLOBIN 9.7 g/dL (14.0-18.0)
--- NOTE | 2017-11-20 22:19 | Progress Note ---
Internal Med Progress Note Date of Service: Nov 20, 2017. Provider Documentation: Made aware by RN of patient request to speak to nighttime physician. Patient upset that "nobody was explaining the plan to him" and that "there are communication issues in this organization." Patient requested me to contact Dr. Van (GI specialist) regarding future testing/need for nuclear scan. Patient wants to know if he'll be able to go home tomorrow. As per conversation with Dr. Van - nuclear scan if with recurrent bleeding. Patient updated of plan of care. Patient would like service to know that he is open to transfer to a medical facility in [place] (closer to home) for further evaluation if warranted. Will relay to AM provider Vital Signs: Date Time Temp Pulse Resp B/P (MAP) Pulse Ox O2 Delivery O2 Flow Rate FiO2 11/21/17 04:00 Room Air 11/21/17 03:50 36.7 78 18 119/71 (87) 93 Room Air 11/21/17 00:00 Room Air 11/20/17 23:17 37.1 87 18 132/73 (92) 98 Room Air 11/20/17 20:00 Room Air 11/20/17 19:30 37.0 92 20 125/72 (89) 98 Room Air 11/20/17 16:00 Room Air 11/20/17 15:44 36.8 86 22 122/3 (42) 98 Room Air 11/20/17 14:36 36.7 91 20 139/79 (99) 94 Room Air 11/20/17 13:36 81 20 118/75 (89) 95 Room Air 11/20/17 13:24 79 20 122/76 (91) 97 Room Air 11/20/17 13:18 83 20 123/71 (88) 98 Room Air 11/20/17 13:12 87 20 104/72 (83) 99 Room Air 11/20/17 11:40 36.9 95 20 114/80 100 11/20/17 11:35 36.9 100 20 114/80 (91) 95 Room Air 11/20/17 11:09 37.0 100 18 104/72 97 11/20/17 11:00 Room Air 11/20/17 10:57 36.6 93 18 116/68 95 11/20/17 10:45 36.6 96 16 127/63 95 11/20/17 10:11 37.0 97 16 126/65 95 11/20/17 09:34 37.2 103 18 97/71 96 11/20/17 09:22 36.4 142 20 101/63 95 11/20/17 09:10 36.6 132 20 98/86 94 11/20/17 08:13 36.8 97 17 110/69 (83) 96 11/20/17 08:00 Room Air Lab Results: Results Past 24 Hours Test 11/20/17 07:21 11/20/17 08:15 11/20/17 10:42 11/20/17 14:57 Range/Units Bedside Glucose 193 231 70-99 mg/dl White Blood Count 5.94 4.8-10.8 K/uL Red Blood Count 2.37 4.7-6.1 M/uL Hemoglobin 7.4 9.7 14.0-18.0 g/dL Hematocrit 21.2 28.2 42-52 % Mean Corpuscular Volume 89.5 80-100 fL Mean Corpuscular Hemoglobin 31.2 25-34 pg Mean Corpuscular Hemoglobin Concent 34.9 32-36 g/dl RDW Standard Deviation 42.0 36.4-46.3 fL RDW Coefficient of Variation 13.1 11.5-14.5 % Platelet Count 168 130-400 K/uL Mean Platelet Volume 9.5 7.4-10.4 fL Sodium Level 141 136-145 mmol/L Potassium Level 4.1 3.5-5.1 mmol/L Chloride Level 105 98-107 mmol/L Carbon Dioxide Level 28 21-32 mmol/L Anion Gap 8.0 3-11 mmol/L Blood Urea Nitrogen 14 7-18 mg/dl Creatinine 0.83 0.60-1.40 mg/dl Est Creatinine Clear Calc Drug Dose 105.5 ml/min Estimated GFR () 105.5 Estimated GFR (Non- 91.0 BUN/Creatinine Ratio 16.4 10-20 Random Glucose 170 70-99 mg/dl Estimated Average Glucose 177 mg/dl Hemoglobin A1c 7.8 4.5-5.6 % Calcium Level 7.3 8.5-10.1 mg/dl Beta-Hydroxybutyric Acid 7.67 4.30 0.2-2.81 mg/dL Test 11/20/17 15:48 11/20/17 20:40 11/21/17 05:53 11/21/17 06:24 Range/Units Bedside Glucose 147 118 82 70-99 mg/dl White Blood Count 6.70 4.8-10.8 K/uL Red Blood Count 2.77 4.7-6.1 M/uL Hemoglobin 8.5 14.0-18.0 g/dL Hematocrit 24.5 42-52 % Mean Corpuscular Volume 88.4 80-100 fL Mean Corpuscular Hemoglobin 30.7 25-34 pg Mean Corpuscular Hemoglobin Concent 34.7 32-36 g/dl RDW Standard Deviation 44.7 36.4-46.3 fL RDW Coefficient of Variation 13.8 11.5-14.5 % Platelet Count 146 130-400 K/uL Mean Platelet Volume 9.9 7.4-10.4 fL Sodium Level 144 136-145 mmol/L Potassium Level 3.5 3.5-5.1 mmol/L Chloride Level 111 98-107 mmol/L Carbon Dioxide Level 29 21-32 mmol/L Anion Gap 4.0 3-11 mmol/L Blood Urea Nitrogen 8 7-18 mg/dl Creatinine 0.86 0.60-1.40 mg/dl Est Creatinine Clear Calc Drug Dose 102.6 ml/min Estimated GFR () 104.0 Estimated GFR (Non- 89.7 BUN/Creatinine Ratio 9.0 10-20 Random Glucose 76 70-99 mg/dl Calcium Level 7.0 8.5-10.1 mg/dl Beta-Hydroxybutyric Acid 5.20 0.2-2.81 mg/dL
[2017-11-21] MEDS: PANTOprazole INJ 40 MG in DEXTROSE 5% 100ML IV SCH ×3 (02:25→11:24)
[2017-11-21 03:50] VITALS: BP 119/71; PULSE 78; TEMP 36.7; O2SAT 93
[2017-11-21 06:11] LABS: HEMATOCRIT 24.5 % (42-52); HEMOGLOBIN 8.5 g/dL (14.0-18.0); MEAN CELL VOLUME 88.4 fL (80-100); MEAN CORPUSCULAR HEMOGLOBIN 30.7 pg (25-34); MEAN CORPUSCULAR HGB CONC 34.7 g/dl (32-36); MEAN PLATELET VOLUME 9.9 fL (7.4-10.4); PLATELET COUNT 146 K/uL (130-400); RED CELL DISTRIBUTION WIDTH CV 13.8 % (11.5-14.5); RED CELL DISTRIBUTION WIDTH SD 44.7 fL (36.4-46.3)
[2017-11-21 06:48] LABS: CREATININE 0.86 mg/dl (0.60-1.40); POTASSIUM 3.5 mmol/L (3.5-5.1)
[2017-11-21] MEDS: INSULIN ASPART 100 UNITS/ML 3 ML PEN SC SCH ×2 (07:00→11:00)
[2017-11-21] MEDS: SODIUM CHLORIDE 0.9% 1000ML 1,000 ML IV SCH (07:15)
[2017-11-21 08:14] VITALS: BP 139/76; PULSE 72; TEMP 36.5; O2SAT 16
[2017-11-21] MEDS: INSULIN GLARGINE SOLOSTAR 100 UNITS/ML 3 ML PEN SC SCH (09:00)
[2017-11-21] MEDS ORDERED: OPTIRAY 320 IV PRN (09:15)
--- NOTE | 2017-11-21 10:20 | Gastroenterology Progress Note ---
Progress Note Date of Service: Nov 21, 2017 Subjective Pt evaluation today including: conversation w/ patient, physical exam, chart review, lab review, review of studies, review of inpatient medication list Mr. Ramirez is a 67 yr old male who experienced rectal bleeding on 11/19 and underwent EGD, Colonoscopy w/o evidence of the cause on 11/20. He feels well, is sitting up in bed, on the phone with work contacts (salesman). No abdominal pain. Hb 11.3, decrease to 7.3, received 2 units of blood and Hb is now 8.5. No rectal bleeding since 11/19. Review of Systems Constitutional: No see HPI, No fever, No chills, No sweats, No weight loss, No weakness, No fatigue, No problem reported ENT: No hearing loss Respiratory: No see HPI, No cough, No sputum, No wheezing, No shortness of breath, No dyspnea on exertion, No dyspnea at rest, No hemoptysis, No problem reported Cardiac: No see HPI, No chest pain, No orthopnea, No PND, No edema, No claudication, No palpitations, No problem reported Abdomen: + GI bleeding (See HPI), No see HPI, No pain, No nausea, No vomiting, No diarrhea, No constipation, No dysphagia, No odynophagia, No acolic stools, No jaundice, No dark urine, No problem reported Male : No dysuria Neuro: No memory loss Psych: No depression symptoms Heme: No abnormal bleeding/bruising Endo: No fatigue Skin: No rash Medications Current Inpatient Medications Medications (Trade) Dose Ordered Sig/Fracisco Route Start Time Stop Time Status Last Admin Dose Admin Pantoprazole Sodium 40 mg/ Dextrose 100 ml @ 20 mls/hr Q5H IV 11/19/17 12:30 12/19/17 12:29 11/21/17 07:15 20 MLS/HR Ondansetron HCl (Zofran Inj) 4 mg Q6H PRN IV 11/19/17 14:30 12/19/17 14:29 Glucose (Glucose 40% Gel) 15-30 GRAMS 15 GRAMS... UD PRN PO 11/19/17 14:30 12/19/17 14:29 Glucose (Glucose Chew Tab) 4-8 Tablets 4 Tabl... UD PRN PO 11/19/17 14:30 12/19/17 14:29 Dextrose (Dextrose 50% 50ML Syringe) 25-50ML OF 50% DW IV FOR... UD PRN IV 11/19/17 14:30 12/19/17 14:29 Glucagon (Glucagon Inj) 1 mg UD PRN SQ 11/19/17 14:30 12/19/17 14:29 Miscellaneous Information (Consult Glycemic Management Pharmacy) 1 ea UD PRN N/A 11/19/17 14:44 12/19/17 14:43 Sodium Chloride 1,000 ml @ 125 mls/hr Q8H IV 11/19/17 14:30 12/19/17 14:29 11/21/17 07:15 125 MLS/HR Insulin Glargine (Lantus Solostar Pen) see protocol text DAILY SC 11/20/17 09:00 12/20/17 08:59 11/20/17 07:49 20 UNITS Insulin Aspart (novoLOG ASPART) SLIDING SCALE If C... ACHS SC 11/19/17 21:00 12/19/17 20:59 11/20/17 11:08 3 UNITS Objective Vital Signs Date Time Temp Pulse Resp B/P (MAP) Pulse Ox O2 Delivery O2 Flow Rate FiO2 11/21/17 08:14 36.5 72 18 139/76 (97) 16 11/21/17 04:00 Room Air 11/21/17 03:50 36.7 78 18 119/71 (87) 93 Room Air 11/21/17 00:00 Room Air 11/20/17 23:17 37.1 87 18 132/73 (92) 98 Room Air 11/20/17 20:00 Room Air 11/20/17 19:30 37.0 92 20 125/72 (89) 98 Room Air 11/20/17 16:00 Room Air 11/20/17 15:44 36.8 86 22 122/3 (42) 98 Room Air 11/20/17 14:36 36.7 91 20 139/79 (99) 94 Room Air 11/20/17 13:36 81 20 118/75 (89) 95 Room Air 11/20/17 13:24 79 20 122/76 (91) 97 Room Air 11/20/17 13:18 83 20 123/71 (88) 98 Room Air 11/20/17 13:12 87 20 104/72 (83) 99 Room Air 11/20/17 11:40 36.9 95 20 114/80 100 11/20/17 11:35 36.9 100 20 114/80 (91) 95 Room Air 11/20/17 11:09 37.0 100 18 104/72 97 11/20/17 11:00 Room Air 11/20/17 10:57 36.6 93 18 116/68 95 11/20/17 10:45 36.6 96 16 127/63 95 11/20/17 10:11 37.0 97 16 126/65 95 11/20/17 09:34 37.2 103 18 97/71 96 11/20/17 09:22 36.4 142 20 101/63 95 11/20/17 09:10 36.6 132 20 98/86 94 Physical Exam General Appearance: no apparent distress ENT: pharynx normal Neck: thyroid normal, no JVD Respiratory/Chest: lungs clear Cardiovascular: regular rate, rhythm, no murmur Abdomen: soft Extremities: no pedal edema Neurologic/Psych: alert, normal mood/affect, oriented x 3 Skin: no jaundice Laboratory Results Last 24 Hours Test 11/20/17 10:42 11/20/17 14:57 11/20/17 15:48 11/20/17 20:40 Bedside Glucose 231 mg/dl 147 mg/dl 118 mg/dl Hemoglobin 9.7 g/dL Hematocrit 28.2 % Beta-Hydroxybutyric Acid 4.30 mg/dL Test 11/21/17 05:53 11/21/17 06:24 White Blood Count 6.70 K/uL Red Blood Count 2.77 M/uL Hemoglobin 8.5 g/dL Hematocrit 24.5 % Mean Corpuscular Volume 88.4 fL Mean Corpuscular Hemoglobin 30.7 pg Mean Corpuscular Hemoglobin Concent 34.7 g/dl RDW Standard Deviation 44.7 fL RDW Coefficient of Variation 13.8 % Platelet Count 146 K/uL Mean Platelet Volume 9.9 fL Sodium Level 144 mmol/L Potassium Level 3.5 mmol/L Chloride Level 111 mmol/L Carbon Dioxide Level 29 mmol/L Anion Gap 4.0 mmol/L Blood Urea Nitrogen 8 mg/dl Creatinine 0.86 mg/dl Est Creatinine Clear Calc Drug Dose 102.6 ml/min Estimated GFR () 104.0 Estimated GFR (Non- 89.7 BUN/Creatinine Ratio 9.0 Random Glucose 76 mg/dl Calcium Level 7.0 mg/dl Beta-Hydroxybutyric Acid 5.20 mg/dL Bedside Glucose 82 mg/dl Assessment and Plan Mr. Ramirez is a 67-year-old male who was admitted on 11/19 for rectal bleeding. No further bleeding since that date. He had a significant drop in his hemoglobin and hematocrit. EGD and colonoscopy were without any evidence of blood in the intestinal tract. Most likely this represented a brisk but significant small bowel bleed. Plan CT enterography this morning. Patient would like to be discharged today. If hemoglobin hematocrit remained stable no abnormalities on CT scan it is reasonable to discuss discharge this afternoon. Addendum: CT enterography w/o any evidence of current GI bleeding or bowel abnormalities. I have seen , examined and agree with the plan as outlined by MARGIE Soria as above. -Exam reveals soft abd -No bleeding overnight -Appears stable -Likely diverticular in origin -Ok with solid food, d/c at his a families request pending cbc -Close follow up locally with PCP.
--- NOTE | 2017-11-21 10:45 | DIAGNOSTIC IMAGING REPORT ---
ABD/PELVIS IV AND ORAL CONT CLINICAL HISTORY: 67 years-old Male presenting with enterography to r/o small bowel pathology;rectal bleeding, anemia. TECHNIQUE: Multidetector CT of the abdomen and pelvis was performed after the administration of oral and intravenous contrast. IV contrast: 94 mL of Optiray 320. A dose lowering technique was used consistent with the principles of ALARA (as low as reasonably achievable). COMPARISON: None. CT DOSE (mGy.cm): The estimated cumulative dose is 1010.11 mGy.cm. FINDINGS: Driving School Instructor topogram: Unremarkable. Lung bases: Groundglass and reticular subpleural opacities. Bronchial wall thickening noted in the lower lobes, left greater than right. Normal heart size. Coronary artery calcification. No pericardial or pleural effusion. Liver: Congenital hypoplasia of the medial segments of the left hepatic lobe. Centrally hypodense 2.4 cm lesion is noted in the lateral left hepatic lobe (series 3 image 106) with discontinuous nodular peripheral enhancement. This is indeterminate on this single phase examination but highly suggestive of a benign hemangioma. Biliary: No intrahepatic or extrahepatic biliary ductal dilatation. Normal gallbladder. Pancreas: Mild parenchymal atrophy. Spleen: Normal. Adrenal glands: Low-density 1.5 cm nodule in the medial limb of the left adrenal gland consistent with a benign adenoma by density. A smaller nodule in the medial limb of the right adrenal gland is too small to characterize but possibly an additional adenoma. Kidneys and ureters: Mild nonspecific perinephric fat stranding. Normal renal parenchyma for the corticomedullary phase. No nephrolithiasis. No hydronephrosis. 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 Duplicated left renal collecting system with early confluence of the ureters at the level of the ureteropelvic junction. Bladder: Normal. Pelvic organs: Prostate enlargement likely secondary to benign prostatic hyperplasia. Bowel: No colonic wall thickening or pericolonic inflammatory change. The appendix is normal. No bowel obstruction. Fluid is noted throughout the small bowel consistent with negative oral contrast. No small bowel wall thickening or perienteric inflammatory change. No CT evidence of extravasation of intravenous contrast into the bowel lumen to suggest a site of gastrointestinal hemorrhage. Peritoneal cavity: No free fluid or intraperitoneal gas. Lymph nodes: No enlarged lymph nodes in the abdomen or pelvis. Vasculature: Atherosclerosis of the normal caliber abdominal aorta. IVC patent. Abdominal wall: Fat-containing inguinal hernias, left greater than right. Nonspecific subcutaneous edema in the lumbar region. Musculoskeletal: Degenerative changes of the spine. Bilateral pars defects at L5. Resultant grade 1 anterolisthesis of L5 on S1. Sclerotic lesion in the left ilium likely bone island. IMPRESSION: 1. No CT evidence of gastrointestinal hemorrhage. No bowel obstruction or other bowel pathology. 2. No acute intra-abdominal pathology. 3. Benign left adrenal adenoma. Suspected right adrenal adenoma. 4. Duplicated renal collecting systems. No hydronephrosis. 5. Suspected benign hemangioma in the left hepatic lobe. 6. Extensive groundglass and reticular subpleural opacities at the lung bases accompanied by bronchial wall thickening could suggest postinflammatory/postinfectious change, chronic aspiration, or atelectasis. Electronically signed by: Ludin Asencio M.D. 11/21/2017 10:43 AM Dictated Date/Time: 11/21/2017 10:34 AM
[2017-11-21 11:12] VITALS: BP 141/71; PULSE 76; TEMP 36.8; O2SAT 95
[2017-11-21 12:57] LABS: HEMATOCRIT 24.7 % (42-52); HEMOGLOBIN 8.6 g/dL (14.0-18.0)
[2017-11-21 13:20] VITALS: BP 141/71; PULSE 76; TEMP 36.8; O2SAT 95
--- NOTE | 2017-11-21 13:28 | Pharmacy Progress Note ---
Pharmacy Glycemic Short Note 2 Date of Service Nov 21, 2017. OUTPATIENT ANTIDIABETIC REGIMEN: * Glyburide + metformin + Lantus 20 units qAM * A1c 7.8% (11/20/17) ASSESSMENT: * 67 yr old T2DM admitted with rectal bleeding. * Oral diet resumed last evening. * Patient has received 25 units of insulin over the past 24 hours with BSGs: 193 , 231, 147, 118 * Fasting BSG of 82 mg/dL is slightly below goal. Lantus ordered per scale, therefore patient will only receive half dose (10 units) * Post prandial BSGs improving. No changes to bolus insulin PLAN FOR INPATIENT GLYCEMIC CONTROL: * Hold outpatient oral diabetes medications * Basal insulin * Lantus 10-20 units SQ qAM * Bolus insulin * NovoLog per scale ACHS or Q6hrs while NPO * Goal Range: Low 120 mg/dL - High 160 mg/dL * Correction Factor: 25 mg/dL/unit * Nutritional / Prandial insulin per carb ratio of 1 unit per 8 grams CHO consumed PLAN FOR DISCHARGE: * A1c above goal. Continue to titrate Lantus dose per outpatient provider. * If glyburide is continued on discharge, consider changing to twice daily dosing prior to meals to avoid hypoglycemia (currently reported as QID on med rec).
--- NOTE | 2017-11-21 14:23 | Progress Note ---
Medicine Progress Note Date & Time of Visit: Nov 21, 2017 at 13:58. Subjective Pt was seen and examined Lying in bed with no distress Pt said that he feels fine He said that he has not had any bloody stool He would like to be discharged today He said that his family will drive him to [place] Denies any chest pain, palpitation, dizziness and SOB Objective Last 8 Hrs Date Time Temp Pulse Resp B/P (MAP) Pulse Ox O2 Delivery O2 Flow Rate FiO2 11/21/17 13:20 36.8 76 18 95 Room Air 11/21/17 12:00 Room Air 11/21/17 11:12 36.8 76 18 141/71 (94) 95 11/21/17 08:14 36.5 72 18 139/76 (97) 16 11/21/17 08:00 Room Air Physical Exam: General- No acute distress Head- atraumatic Eyes- PERRL, EOMI ENT- oropharynx clear Neck- supple, no JVD Lungs- clear to auscultation Heart- regular rhythm Abdomen- normal bowel sounds, soft Extremities- no calf tenderness Neuro- alert, oriented x 3; PERRL, EOMI; no facial palsy Skin- warm & dry Laboratory Results: Last 24 Hours Test 11/20/17 14:57 11/20/17 15:48 11/20/17 20:40 11/21/17 05:53 Hemoglobin 9.7 g/dL 8.5 g/dL Hematocrit 28.2 % 24.5 % Beta-Hydroxybutyric Acid 4.30 mg/dL 5.20 mg/dL Bedside Glucose 147 mg/dl 118 mg/dl White Blood Count 6.70 K/uL Red Blood Count 2.77 M/uL Mean Corpuscular Volume 88.4 fL Mean Corpuscular Hemoglobin 30.7 pg Mean Corpuscular Hemoglobin Concent 34.7 g/dl RDW Standard Deviation 44.7 fL RDW Coefficient of Variation 13.8 % Platelet Count 146 K/uL Mean Platelet Volume 9.9 fL Sodium Level 144 mmol/L Potassium Level 3.5 mmol/L Chloride Level 111 mmol/L Carbon Dioxide Level 29 mmol/L Anion Gap 4.0 mmol/L Blood Urea Nitrogen 8 mg/dl Creatinine 0.86 mg/dl Est Creatinine Clear Calc Drug Dose 102.6 ml/min Estimated GFR () 104.0 Estimated GFR (Non- 89.7 BUN/Creatinine Ratio 9.0 Random Glucose 76 mg/dl Calcium Level 7.0 mg/dl Test 11/21/17 06:24 11/21/17 11:51 11/21/17 12:30 Bedside Glucose 82 mg/dl 128 mg/dl Hemoglobin 8.6 g/dL Hematocrit 24.7 % Assessment & Plan GI BLEED ACUTE BLOOD LOSS ANEMIA Hbg on admission 11.3 Hgb this morning 7.4 Will give 2 unit PRBC GI on board NPO now for EGD/Colonoscopy today Continue Protonix drip and IV fluid Hold ASA Continue monitor H/H 11/21 Received 2 units PRBC during hospital course Hgb was 8.5 this morning and repeat Hbg at [address] Abd/pelvis with IV/PO contrast showed no evidence of gastrointestinal hemorrhage. No bowel obstruction or other bowel pathology. No aspirin and NSAIDs for now Continue monitor CBC Pt wants to be discharged today and he will be follow with his PCP in [place] S/p Colonoscopy and EGD yesterday Colonoscopy - Blood in the entire examined colon. - Diverticulosis in the sigmoid colon and in the ascending colon. - The examined portion of the ileum was normal. - Internal hemorrhoids EGD showed - Normal esophagus. - Normal stomach. - Normal duodenum DM II: Hba1c 7.8 Elevated Beta hydroxybutyric acid trending down No anion gap Continue Lantus Pharmacy for glycemic management On insulin coverage Atypical chest pain: Troponin negative EKG showed no ischemic changes ASA on hold due to GI bleed Stable Benign Adrenal adenoma Benign Hemangioma of the Liver Seen on CT abdomen Follow up with your PCP as an outpatient Tachycardia Possible related to GI bleed/Anemia and in the setting of hospital stay EKG showed sinus tach Continue monitor in telemetry HTN: BP stable Continue holding losartan BPH: Stable Asthma: Stable DVT Ppx: SCDs due to GI bleed Code status: FULL Disposition Discharge home today with family Follow up with your PCP in [place] Dr. Suarez Chart copy/ Imaging put on CDs Consultants: gastro Procedures: Colonoscopy Endoscopy Current Inpatient Medications: Current Inpatient Medications Medications (Trade) Dose Ordered Sig/Fracisco Route Start Time Stop Time Status Last Admin Dose Admin Pantoprazole Sodium 40 mg/ Dextrose 100 ml @ 20 mls/hr Q5H IV 11/19/17 12:30 12/19/17 12:29 11/21/17 11:24 20 MLS/HR Ondansetron HCl (Zofran Inj) 4 mg Q6H PRN IV 11/19/17 14:30 12/19/17 14:29 Glucose (Glucose 40% Gel) 15-30 GRAMS 15 GRAMS... UD PRN PO 11/19/17 14:30 12/19/17 14:29 Glucose (Glucose Chew Tab) 4-8 Tablets 4 Tabl... UD PRN PO 11/19/17 14:30 12/19/17 14:29 Dextrose (Dextrose 50% 50ML Syringe) 25-50ML OF 50% DW IV FOR... UD PRN IV 11/19/17 14:30 12/19/17 14:29 Glucagon (Glucagon Inj) 1 mg UD PRN SQ 11/19/17 14:30 12/19/17 14:29 Miscellaneous Information (Consult Glycemic Management Pharmacy) 1 ea UD PRN N/A 11/19/17 14:44 12/19/17 14:43 Sodium Chloride 1,000 ml @ 125 mls/hr Q8H IV 11/19/17 14:30 12/19/17 14:29 11/21/17 07:15 125 MLS/HR Insulin Glargine (Lantus Solostar Pen) see protocol text DAILY SC 11/20/17 09:00 12/20/17 08:59 11/21/17 09:00 10 UNITS Insulin Aspart (novoLOG ASPART) SLIDING SCALE If C... ACHS SC 11/19/17 21:00 12/19/17 20:59 11/21/17 11:00 3 UNITS Ioversol (Optiray 320) 100 ml UD PRN IV 11/21/17 09:15 11/25/17 09:14
--- NOTE | 2017-11-21 14:36 | Discharge Instructions ---
Discharge Instructions Date of Service Nov 21, 2017. Admission Reason for Admission: Anemia, Gi Bleed Discharge Discharge Diagnosis / Problem: Rectal Bleeding, Acute blood loss Anemia Discharge Goals Goal(s): Decrease discomfort, Improve function, Improve disease control Activity Recommendations Activity Limitations: resume your previous activity (as tolerated) . Instructions / Follow-Up Instructions / Follow-Up Follow up with your physician in [place] Hold NSAID for now such as Aspirin, ibuprofen, Motrin, Aleve and Naproxen Your physician will check your CBC to monitor your hemoglobin Hold Metformin for at least 48 hrs due to the IV contrast Monitor Blood sugar Seek medical attention if bleeding reoccurs Current Hospital Diet Patient's current hospital diet: Diabetes Type 2 Diet Discharge Diet Recommended Diet: Diabetes Type 2 Diet Procedures Procedures Performed: EGD COLON Pending Studies Studies pending at discharge: no Laboratory Results Hemoglobin A1c Test 11/20/17 08:15 Range/Units Estimated Average Glucose 177 mg/dl Hemoglobin A1c 7.8 H 4.5-5.6 % Medical Emergencies . Who to Call and When: Medical Emergencies: If at any time you feel your situation is an emergency, please call 911 immediately. . Non-Emergent Contact Non-Emergency issues call your: Primary Care Provider Call Non-Emergent contact if: you have any medication questions . . "Provider Documentation" section prepared by Marco A Farley. . VTE Core Measure Inpt VTE Proph given/why not?: SCD's
--- NOTE | 2017-11-21 14:41 | Discharge Summary ---
Discharge Summary Date of Service Nov 21, 2017. Discharge Summary Admission Date: Nov 19, 2017 at 14:24 Discharge Date: Nov 21, 2017 Discharge Disposition: Home Principal Diagnosis: GI BLEED ACUTE BLOOD LOSS ANEMIA Secondary Diagnoses/Problems: DM type 2 Benign Adrenal adenoma Benign Hemangioma of the Liver Atypical Chest pain Tachycardia HTN BPH Procedures: Colonoscopy Endoscopy ABD/PELVIS IV AND ORAL CONT CLINICAL HISTORY: 67 years-old Male presenting with enterography to r/o small bowel pathology;rectal bleeding, anemia. TECHNIQUE: Multidetector CT of the abdomen and pelvis was performed after the administration of oral and intravenous contrast. IV contrast: 94 mL of Optiray 320. A dose lowering technique was used consistent with the principles of ALARA (as low as reasonably achievable). COMPARISON: None. CT DOSE (mGy.cm): The estimated cumulative dose is 1010.11 mGy.cm. FINDINGS: Excellence Manager topogram: Unremarkable. Lung bases: Groundglass and reticular subpleural opacities. Bronchial wall thickening noted in the lower lobes, left greater than right. Normal heart size. Coronary artery calcification. No pericardial or pleural effusion. Liver: Congenital hypoplasia of the medial segments of the left hepatic lobe. Centrally hypodense 2.4 cm lesion is noted in the lateral left hepatic lobe (series 3 image 106) with discontinuous nodular peripheral enhancement. This is indeterminate on this single phase examination but highly suggestive of a benign hemangioma. Biliary: No intrahepatic or extrahepatic biliary ductal dilatation. Normal gallbladder. Pancreas: Mild parenchymal atrophy. Spleen: Normal. Adrenal glands: Low-density 1.5 cm nodule in the medial limb of the left adrenal gland consistent with a benign adenoma by density. A smaller nodule in the medial limb of the right adrenal gland is too small to characterize but possibly an additional adenoma. Kidneys and ureters: Mild nonspecific perinephric fat stranding. Normal renal parenchyma for the corticomedullary phase. No nephrolithiasis. No hydronephrosis. 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 Duplicated left renal collecting system with early confluence of the ureters at the level of the ureteropelvic junction. Bladder: Normal. Pelvic organs: Prostate enlargement likely secondary to benign prostatic hyperplasia. Bowel: No colonic wall thickening or pericolonic inflammatory change. The appendix is normal. No bowel obstruction. Fluid is noted throughout the small bowel consistent with negative oral contrast. No small bowel wall thickening or perienteric inflammatory change. No CT evidence of extravasation of intravenous contrast into the bowel lumen to suggest a site of gastrointestinal hemorrhage. Peritoneal cavity: No free fluid or intraperitoneal gas. Lymph nodes: No enlarged lymph nodes in the abdomen or pelvis. Vasculature: Atherosclerosis of the normal caliber abdominal aorta. IVC patent. Abdominal wall: Fat-containing inguinal hernias, left greater than right. Nonspecific subcutaneous edema in the lumbar region. Musculoskeletal: Degenerative changes of the spine. Bilateral pars defects at L5. Resultant grade 1 anterolisthesis of L5 on S1. Sclerotic lesion in the left ilium likely bone island. IMPRESSION: 1. No CT evidence of gastrointestinal hemorrhage. No bowel obstruction or other bowel pathology. 2. No acute intra-abdominal pathology. 3. Benign left adrenal adenoma. Suspected right adrenal adenoma. 4. Duplicated renal collecting systems. No hydronephrosis. 5. Suspected benign hemangioma in the left hepatic lobe. 6. Extensive groundglass and reticular subpleural opacities at the lung bases accompanied by bronchial wall thickening could suggest postinflammatory/postinfectious change, chronic aspiration, or atelectasis. Electronically signed by: Ludin Asencio M.D. 11/21/2017 10:43 AM Dictated Date/Time: 11/21/2017 10:34 AM Consultations: gastro Medication Reconciliation Continued Medications: Ascorbic Acid (Vitamin C) 1,000 Mg Tab 1 TAB PO DAILY Biotin (Biotin 5000) 5 Mg Cap 1 TAB PO DAILY Calcium (Calcium) 600 Mg Tab 1 TAB PO DAILY Cholecalciferol (Vitamin D3) 2,000 Unit Cap 1 CAP PO DAILY for 90 Days, #90 CAP 3 Refills Coenzyme Q10 (Ubidecarenone) (Co Q-10) 300 Mg Cap 1 CAP PO DAILY Cyanocobalamin (Vitamin B-12) 1,000 Mcg Tab 1000 MCG PO DAILY, TAB Flaxseed (Linseed) (Flaxseed Oil) 1,030 Mg Cap 1 CAP PO DAILY Glyburide (Micronase) 5 Mg Tab 5 MG PO QID, TAB Insulin Glargine (Lantus) 100 Unit/Ml Inj 20 UNITS SC QAM, VIAL Krill Oil (Krill Oil 500 mg) 1 Cap Cap 1 TAB PO DAILY Losartan Potassium (Cozaar) 50 Mg Tab 50 MG PO DAILY, TAB Metformin Hcl (Glucophage) 1,000 Mg Tab 1000 MG PO BID, TAB Ocuvite Preservision (Ocuvite Preservision) 1 Tab Tab 1 TAB PO DAILY, TAB Potassium (Potassium) 99 Mg Tab 1 TAB PO QPM Simvastatin (Zocor) 20 Mg Tab 1 TAB PO HS for 30 Days, #30 TAB 5 Refills Tamsulosin Hcl (Flomax) 0.4 Mg Cap 0.4 MG PO DAILY, CAP Discontinued Medications: Aspirin (Aspirin Ec) 81 Mg Tab 162 MG PO DAILY Ibuprofen (Advil) 200 Mg Tab 400 MG PO PM PRN for Pain, TAB Admission Information HPI (per Admitting provider): This is a 67yo M with a PMH of DM II, HTN, BPH and asthma who presents with rectal bleeding for the past few days. He lives in [place] but is traveling in the area for work. Noticed that his stool was darker than normal the past few days but only this morning did he notice blood in the toilet after a bowel movement. Endorses 7 episodes of dark brown stool with dark red blood today. Started to feel lightheaded with exertion so came to ED for further evaluation. Denies abdominal pain, nausea or vomiting. Denies any history of peptic ulcers, diverticular bleeds. Does not smoke. Takes 2 baby aspirin every morning and 400mg of ibuprofen most nights for shoulder pain. Patient took his AM meds, including 20u of Lantus. Endorses infrequent "twinges" of pain on his left chest. Denies any chest pressure, radiation of pain, diaphoresis. No fever, chills, headache, pre- syncope, visual changes, sore throat, palpitations, SOB, dysuria, weakness of extremities or LE swelling. Physical Exam (per Admitting): General Appearance: WD/WN, no apparent distress, + pertinent finding (pale ) Head: normocephalic, atraumatic Eyes: normal inspection, PERRL, sclerae normal ENT: normal ENT inspection, hearing grossly normal, pharynx normal Neck: supple, thyroid normal, trachea midline Respiratory/Chest: chest non-tender, lungs clear, normal breath sounds, no respiratory distress, no accessory muscle use Cardiovascular: no murmur, normal peripheral pulses, + tachycardia Abdomen/GI: normal bowel sounds, non tender, soft, no organomegaly Back: normal inspection Extremities/Musculoskelatal: normal inspection, no calf tenderness, no pedal edema Neurologic/Psych: no motor/sensory deficits, alert, normal mood/affect, oriented x 3 Skin: normal color, warm/dry, + pallor Hospital Course GI BLEED ACUTE BLOOD LOSS ANEMIA Hbg on admission 11.3 Hgb this morning 7.4 Will give 2 unit PRBC GI on board NPO now for EGD/Colonoscopy today Continue Protonix drip and IV fluid Hold ASA Continue monitor H/H 11/21 Received 2 units PRBC during hospital course Hgb was 8.5 this morning and repeat Hbg at [address] Abd/pelvis with IV/PO contrast showed no evidence of gastrointestinal hemorrhage. No bowel obstruction or other bowel pathology. No aspirin and NSAIDs for now Continue monitor CBC Pt wants to be discharged today and he will be follow with his PCP in [place] S/p Colonoscopy and EGD yesterday Colonoscopy - Blood in the entire examined colon. - Diverticulosis in the sigmoid colon and in the ascending colon. - The examined portion of the ileum was normal. - Internal hemorrhoids EGD showed - Normal esophagus. - Normal stomach. - Normal duodenum DM II: Hba1c 7.8 Elevated Beta hydroxybutyric acid trending down No anion gap Continue Lantus Pharm[facility] for glycemic management On insulin coverage Atypical chest pain: Troponin negative EKG showed no ischemic changes ASA on hold due to GI bleed Stable Benign Adrenal adenoma Benign Hemangioma of the Liver Seen on CT abdomen Follow up with your PCP as an outpatient Tachycardia Possible related to GI bleed/Anemia and in the setting of hospital stay EKG showed sinus tach Continue monitor in telemetry HTN: BP stable Continue holding losartan BPH: Stable Asthma: Stable DVT Ppx: SCDs due to GI bleed Code status: FULL Disposition Discharge home today with family Follow up with your PCP in [place] Dr. Suarez Chart copy/ Imaging put on CDs Total time spent on discharge = 35 minutes This includes examination of the patient, discharge planning, medication reconciliation, and communication with other providers. Discharge Instructions Discharge Instructions Date of Service Nov 21, 2017. Admission Reason for Admission: Anemia, Gi Bleed Discharge Discharge Diagnosis / Problem: Rectal Bleeding, Acute blood loss Anemia Discharge Goals Goal(s): Decrease discomfort, Improve function, Improve disease control Activity Recommendations Activity Limitations: resume your previous activity (as tolerated) . Instructions / Follow-Up Instructions / Follow-Up Follow up with your physician in [place] Hold NSAID for now such as Aspirin, ibuprofen, Motrin, Aleve and Naproxen Your physician will check your CBC to monitor your hemoglobin Hold Metformin for at least 48 hrs due to the IV contrast Monitor Blood sugar Seek medical attention if bleeding reoccurs Current Hospital Diet Patient's current hospital diet: Diabetes Type 2 Diet Discharge Diet Recommended Diet: Diabetes Type 2 Diet Procedures Procedures Performed: EGD COLON Pending Studies Studies pending at discharge: no Laboratory Results Hemoglobin A1c Test 11/20/17 08:15 Range/Units Estimated Average Glucose 177 mg/dl Hemoglobin A1c 7.8 H 4.5-5.6 % Medical Emergencies . Who to Call and When: Medical Emergencies: If at any time you feel your situation is an emergency, please call 911 immediately. . Non-Emergent Contact Non-Emergency issues call your: Primary Care Provider Call Non-Emergent contact if: you have any medication questions . . "Provider Documentation" section prepared by Marco A Farley. . VTE Core Measure Inpt VTE Proph given/why not?: SCD's Signed: Signed: The status of this report is Draft * If report status is Draft, the document has not been finalized by the responsible provider.
--- NOTE | 2017-11-25 13:47 | EDITING REQUIRED CODING QUERY ---
CODING QUERY To promote full compliance with coding requirements relating to patient care, provider participation is requested in all cases of ruffling machine operator uncertainty. Please assist us with the question(s) below: Coding Question(s): Patient admitted with acute blood loss anemia and rectal bleed. Colonoscopy revealed diverticulosis of colon. Please document, if known or suspected, the etiology of the lower GI bleed. Thank you! Curtis Quintero SPA DIRECTOR/FINANCE [facility] Physician's Response(s): unknown etiology. Diverticulosis on colonoscopy. Principal Diagnosis: "_that condition established after study, to be chiefly responsible for occasioning the admission of the patient to the hospital for care." Co-Existing Principal Diagnosis: "_when two or more diagnoses equally meet the criteria for principal diagnosis as determined by the circumstances of admission, diagnostic work up, and/or therapy provided, and the Alphabetic Index, Tabular List, or another coding guideline does not provide sequencing direction, any one of the diagnoses may be sequenced first." "When the physician has documented what appears to be a current diagnosis in the body of the record, but has not included the diagnosis in the final diagnostic statement, the physician should be asked whether the diagnosis should be added." (Source Coding [facility] 2 QTR90. p3-4)
== END 2017-11-21 15:23 | disposition home or self-care (01) | DRG 378 ==
LOC: C.EDB 10:20 → C.2E 14:24 → ENRESERV 14:41
PROVIDERS: ADMIT Hospitalist; ATTEND Internal Medicine
PROC: 0DJD8ZZ Inspection of Lower Intestinal Tract, Via Natural or Artificial Opening Endoscopic (ICD-10-PCS; principal; 2017-11-20 11:29)
PROC: 0DJ08ZZ Inspection of Upper Intestinal Tract, Via Natural or Artificial Opening Endoscopic (ICD-10-PCS; principal; 2017-11-20 11:29)
DX: K62.5 Hemorrhage of anus and rectum (principal); K57.30 Diverticulosis of large intestine without perforation or abscess without bleeding; D62 Acute posthemorrhagic anemia; J45.909 Unspecified asthma, uncomplicated; Z79.84 Long term (current) use of oral hypoglycemic drugs; I12.9 Hypertensive chronic kidney disease with stage 1 through stage 4 chronic kidney disease, or unspecified chronic kidney disease; N18.9 Chronic kidney disease, unspecified; Z79.82 Long term (current) use of aspirin; E11.9 Type 2 diabetes mellitus without complications; Z79.4 Long term (current) use of insulin; Z88.8 Allergy status to other drugs, medicaments and biological substances; N40.1 Benign prostatic hyperplasia with lower urinary tract symptoms; D35.00 Benign neoplasm of unspecified adrenal gland; D18.03 Hemangioma of intra-abdominal structures; R07.89 Other chest pain; R00.0 Tachycardia, unspecified